=== PATIENT | male | born 1950 | race Caucasian/White ===

== ENCOUNTER 2018-05-18 01:19 | Emergency (ER) | payer BC, MEDICARE ==
--- NOTE | 2018-05-18 01:46 | ER Document Report ---
ED General - General Chief Complaint: High Blood Pressure Stated Complaint: BLOOD PRESSURE ISSUES Time Seen by Provider: 05/18/18 01:36 Notes: Patient is a 67-year-old male that comes to the emergency department for chief complaint of feeling weak, lightheaded, headache, vague chest and abdomen discomfort, and decreased urination. He states that he drove 6 hours, then worked outside for an extended period of time, did drink a lot of water, has not urinated since this afternoon. He states he just felt generally poor, checked his blood pressure and it was very high. He does not have a history of hypertension. He states he felt mild discomfort in his chest prior to arrival. He denies nausea or vomiting, passing out. Past medical history of atrial fibrillation, arrhythmia, he is on flecainide, does have a history of BPH but denies history of urinary retention or Rondon catheter. TRAVEL OUTSIDE OF THE [place] IN LAST 30 DAYS: No - Related Data Allergies/Adverse Reactions: No Known Allergies Allergy (Verified 05/18/18 01:23) Past Medical History - General Information source: Patient - Social History Smoking Status: Never Smoker Frequency of alcohol use: None Drug Abuse: None Lives with: Family Family History: Reviewed & Not Pertinent - Past Medical History Cardiac Medical History: Reports: Other - SVT Renal/ Medical History: Reports: Hx Benign Prostatic Hyperplasia - Immunizations Hx Diphtheria, Pertussis, Tetanus Vaccination: Yes Review of Systems - Review of Systems Constitutional: See HPI EENT: No symptoms reported Cardiovascular: See HPI Respiratory: No symptoms reported Gastrointestinal: See HPI Genitourinary: See HPI Male Genitourinary: No symptoms reported Musculoskeletal: No symptoms reported Skin: No symptoms reported Hematologic/Lymphatic: No symptoms reported Neurological/Psychological: No symptoms reported Physical Exam - Vital signs Vitals: Temp Pulse Resp BP Pulse Ox 98.0 F 70 20 200/100 H 99 05/18/18 01:23 05/18/18 01:23 05/18/18 01:23 05/18/18 01:23 05/18/18 01:23 - Notes Notes: GENERAL: Patient appears uncomfortable but is not in severe distress HEAD: Normocephalic, atraumatic. EYES: Pupils equal, round, and reactive to light. Extraocular movements intact. ENT: Oral mucosa moist, tongue midline. NECK: Full range of motion. Supple. Trachea midline. LUNGS: Clear to auscultation bilaterally, no wheezes, rales, or rhonchi. No respiratory distress. HEART: Regular rate and rhythm. No murmur ABDOMEN: Patient winces and cries out with palpation of the general lower abdomen. Upper abdominal exam unremarkable. EXTREMITIES: Moves all 4 extremities spontaneously. No edema, normal radial and dorsalis pedis pulses bilaterally. No cyanosis. BACK: no cervical, thoracic, lumbar midline tenderness. No saddle anesthesia, normal distal neurovascular exam. NEUROLOGICAL: Alert and oriented x3. Normal speech. [cranial nerves II through XII grossly intact]. PSYCH: Normal affect, normal mood. SKIN: Warm, dry, normal turgor. No rashes or lesions noted. Course - Re-evaluation Re-evalutation: Patient appears uncomfortable, however he is awake and alert, oriented, has a normal neurological exam. He is very hypertensive with over 200 systolic and over 100 diastolic. On examination he is very tender in the suprapubic area with abdominal distention. Because of dizziness/headache with hypertension the CAT scan of the head will be performed, cardiac workup pending. Ultrasound performed at bedside, shows very distended urinary bladder with approximately 1 L of urine in the bladder, patient states he does have a history of BPH and he was seen recently by his urologist for this. Rondon catheter was placed, 1 L of urine did evacuate, after this abdominal distention resolved, pain resolved, all symptoms resolved. Patient states he feels excellent now. Hypertension resolved. Almost 1000 mL's more came into the bag over the course of the next hour. CBC, chemistry, troponin, urinalysis generally unremarkable. There has been an error with the radiology read, I am unable to see the report of the chest x-ray , no obvious abnormalities, no pulmonary symptoms or chest symptoms at this time. CAT scan of the head with no acute findings, discussed the results and provided him with a copy of the report. Patient asking to leave, states his daughter needs to be taken home, states he has urology follow-up that he will perform. Leg bag placed, discussed urology follow-up, discussed return precautions in detail. Patient states satisfaction and agreement. - Vital Signs Vital signs: Temp Pulse Resp BP Pulse Ox 98.2 F 70 13 137/80 H 97 05/18/18 03:59 05/18/18 01:23 05/18/18 03:46 05/18/18 03:46 05/18/18 03:46 - Laboratory Result Diagrams: 05/18/18 01:42 05/18/18 01:42 Laboratory results interpreted by me: 05/18/18 05/18/18 01:42 01:42 Glucose 111 H Urine Ketones TRACE H Urine Blood SMALL H Discharge - Discharge Clinical Impression: Acute urinary retention BPH (benign prostatic hyperplasia) Qualifiers: Lower urinary tract symptom presence: symptoms present Lower urinary tract symptom detail: urinary retention Qualified Code(s): N40.1 - Benign prostatic hyperplasia with lower urinary tract symptoms Condition: Stable Disposition: HOME, SELF-CARE Additional Instructions: Your evaluation is consistent with acute urinary retention/outflow obstruction. As a result of Rondon catheter had to be placed to drain your bladder. Call your urologist tomorrow to perform close follow-up for additional evaluation and management including possible removal of the Rondon catheter. Your workup tonight does not show any new concerning abnormalities. Return if you worsen including abdominal pain, fever, vomiting, or any other concerning or worsening symptoms. Forms: Treatment of Relative/Child
[2018-05-18] MEDS ORDERED: LIDOCAINE 2% URO-JET 5 ML KIT MM ONE (01:55)
[2018-05-18 01:56] LABS: ABSOLUTE LYMPHOCYTES (AUTO) 1.3 10^3/uL (0.5-4.7); ABSOLUTE MONOCYTES (AUTO) 0.6 10^3/uL (0.1-1.4); ABSOLUTE NEUT (AUTO) 4.8 10^3/uL (1.7-8.2); BASOPHILS % (AUTO) 0.7 % (0-2); EOSINOPHILS % (AUTO) 0.6 % (0-6); HEMATOCRIT 46.2 % (37.9-51.0); HEMOGLOBIN 15.9 g/dL (13.5-17.0); LYMPHOCYTES % (AUTO) 19.4 % (13-45); MEAN CORPUSCULAR HEMOGLOBIN 32.7 pg (27.0-33.4); MEAN CORPUSCULAR HGB CONC 34.3 g/dL (32.0-36.0); MEAN CORPUSCULAR VOLUME 95 fl (80-97); MONOCYTES % (AUTO) 8.8 % (3-13); PLATELET COUNT 279 10^3/uL (150-450); RED BLOOD COUNT 4.86 10^6/uL (4.35-5.55); RED CELL DISTRIBUTION WIDTH 12.7 % (11.5-14.0); SEGMENTED NEUTROPHILS % (AUTO) 70.5 % (42-78); TOTAL CELLS COUNTED % (AUTO) 100 %; WHITE BLOOD COUNT 6.8 10^3/uL (4.0-10.5)
[2018-05-18 02:01] LABS: APPEARANCE,URINE CLEAR; BILIRUBIN,URINE NEGATIVE (NEGATIVE); COLOR,URINE STRAW; GLUCOSE, URINE NEGATIVE (NEGATIVE); KETONES,URINE TRACE mg/dL (NEGATIVE); LEUKOCYTE ESTERASE,URINE NEGATIVE (NEGATIVE); NITRITE,URINE NEGATIVE (NEGATIVE); PROTEIN,URINE NEGATIVE (NEGATIVE); URINE SPECIFIC GRAVITY 1.008; UROBILINOGEN,URINE NEGATIVE mg/dL (<2.0)
[2018-05-18 02:11] LABS: ALANINE AMINOTRANSFERASE 30 U/L (21-72); ALBUMIN 4.7 g/dL (3.5-5.0); ALKALINE PHOSPHATASE 65 U/L (38-126); ANION GAP 12 (5-19); ASPARTATE AMINO TRANSFERASE 28 U/L (17-59); BILIRUBIN,DIRECT 0.3 mg/dL (0.0-0.4); BILIRUBIN,TOTAL 1.1 mg/dL (0.2-1.3); BLOOD UREA NITROGEN 13 mg/dL (7-20); CALCIUM 10.1 mg/dL (8.4-10.2); CARBON DIOXIDE 26 mmol/L (22-30); CHLORIDE 99 mmol/L (98-107); CREATINE KINASE 91 U/L (55-170); GLUCOSE 111 mg/dL (75-110); POTASSIUM 4.4 mmol/L (3.6-5.0); SODIUM 137.1 mmol/L (137-145); TOTAL PROTEIN 7.8 g/dL (6.3-8.2)
--- NOTE | 2018-05-18 03:07 | RADIOLOGY REPORT (SQ) ---
CLINICAL DATA: 67-year-old male with lightheadedness, headache and hypertension. TECHNICAL DATA: Multiple axial CT images of the brain were performed followed by sagittal and coronal reconstructed images. The CT study is performed according to ALARA (as low as reasonably achievable) or ALARA/IMAGE GENTLY, with automatic adjustment of mA and/or kV according to patient size. Comparisons: None. FINDINGS: There is no evidence of mass, acute mass effect or midline shift. There are no acute extra-axial fluid collections. There is no evidence of acute intracranial hemorrhage. The cerebral sulci and ventricles are normal in size and configuration. There are scattered patchy areas of decreased subcortical and periventricular attenuation most consistent with mild chronic microangiopathy.. . There is no significant mucosal thickening of the paranasal sinuses. The mastoid air cells are clear. The orbital contents are grossly unremarkable. No acute osseous abnormalities are identified. No focal soft tissue abnormalities are identified. IMPRESSION: 1. There is no evidence of acute intracranial pathology. 2. Suspect mild chronic microangiopathy.
[2018-05-18 03:59] VITALS: BP 137/80
--- NOTE | 2018-05-18 08:14 | RADIOLOGY REPORT (SQ) ---
EXAM DESCRIPTION: CHEST SINGLE VIEW COMPLETED DATE/TIME: 05/18/2018 2:35 am REASON FOR STUDY: chest pain COMPARISON: None. EXAM PARAMETERS: NUMBER OF VIEWS: One view. TECHNIQUE: Single frontal radiographic view of the chest acquired. RADIATION DOSE: NA LIMITATIONS: None. FINDINGS: LUNGS AND PLEURA: No opacities, masses or pneumothorax. No pleural effusion. MEDIASTINUM AND HILAR STRUCTURES: No masses. Contour normal. HEART AND VASCULAR STRUCTURES: Heart normal in size. Normal vasculature. BONES: No acute findings. HARDWARE: None in the chest. OTHER: No other significant finding. IMPRESSION: 1. NO ACUTE RADIOGRAPHIC FINDING IN THE CHEST. TECHNICAL DOCUMENTATION: JOB ID: [id number]- All Rights Reserved Reading location - IP/workstation name: [email or web address]
--- NOTE | 2018-05-18 08:54 | EKG REPORT ---
SEVERITY:- OTHERWISE NORMAL ECG - SINUS RHYTHM BORDERLINE RIGHT AXIS DEVIATION : Confirmed by: Tyler Cliffrod 18-May-2018 08:53:09
== END 2018-05-18 04:00 | disposition home or self-care (01) ==
LOC: ER 01:19
DX: N40.1 Benign prostatic hyperplasia with lower urinary tract symptoms (principal); R33.9 Retention of urine, unspecified; R53.1 Weakness; R51 Headache; R42 Dizziness and giddiness; R07.9 Chest pain, unspecified
CPT/HCPCS: 99284; 93005; 51702; 36415; 82550; 85025; 80053; 81001; 84484; 71045; 70450; 93010; C1758; J3490

== ENCOUNTER 2018-05-18 20:03 | Emergency (ER) | payer BC, MEDICARE ==
[2018-05-18 20:26] VITALS: BP 155/77
[2018-05-18] MEDS ORDERED: LIDOCAINE 2% URO-JET 5 ML KIT MM ONE (21:03)
--- NOTE | 2018-05-18 21:27 | ER Document Report ---
ED General - General Chief Complaint: Urinary Retention Stated Complaint: CATHETER PROBLEM Time Seen by Provider: 05/18/18 21:10 Mode of Arrival: Ambulatory Information source: Patient Notes: This is a 67-year-old man with a history of an acute obstructive uropathy who presented yesterday and had a Rondon placed. He presents back tonight because of leakage around the Rondon/Rondon not working properly. He states that he was draining fine and then started to leak later today. He denies any pain. He denies any fever. Patient states he took his blood pressure multiple times throughout the day and that the blood pressure was fine. He states that his blood pressure started to elevate when the Rondon seemed to be malfunctioning. He also stated he felt a little dizzy prior to arrival. He denies any chest pain, shortness of breath or abdominal pain. TRAVEL OUTSIDE OF THE [place] IN LAST 30 DAYS: No - HPI Onset: Just prior to arrival Onset/Duration: Gradual Quality of pain: No pain Severity: None Pain Level: Denies Associated symptoms: Other - Transient dizziness. denies: Chest pain, Shortness of breath Exacerbated by: Denies Relieved by: Denies Similar symptoms previously: Yes Recently seen / treated by doctor: Yes - Related Data Allergies/Adverse Reactions: No Known Allergies Allergy (Verified 05/18/18 01:23) Past Medical History - General Information source: Patient - Social History Smoking Status: Never Smoker Cigarette use (# per day): No Chew tobacco use (# tins/day): No Frequency of alcohol use: None Drug Abuse: None Lives with: Family Family History: Reviewed & Not Pertinent Patient has suicidal ideation: No Patient has homicidal ideation: No - Past Medical History Cardiac Medical History: Reports: Hx Coronary Artery Disease, Hx Hypertension Pulmonary Medical History: Reports: None EENT Medical History: Reports: None Neurological Medical History: Reports: None Endocrine Medical History: Reports: None Renal/ Medical History: Reports: Hx Benign Prostatic Hyperplasia. Denies: Hx Peritoneal Dialysis Malignancy Medical History: Reports None GI Medical History: Reports: None Musculoskeletal Medical History: Reports None Skin Medical History: Reports None Psychiatric Medical History: Reports: None Traumatic Medical History: Reports: None Infectious Medical History: Reports: None Past Surgical History: Reports: Hx Cardiac Surgery - Ablation x4, Hx Orthopedic Surgery - knee; L shoulder - Immunizations Hx Diphtheria, Pertussis, Tetanus Vaccination: Yes Review of Systems - Review of Systems Constitutional: denies: Chills, Fever EENT: No symptoms reported Cardiovascular: See HPI. denies: Chest pain, Palpitations, Heart racing Respiratory: No symptoms reported Gastrointestinal: denies: Abdominal pain, Diarrhea, Nausea, Vomiting, Poor appetite Genitourinary: See HPI Male Genitourinary: See HPI Musculoskeletal: No symptoms reported Skin: No symptoms reported Hematologic/Lymphatic: No symptoms reported Neurological/Psychological: No symptoms reported Physical Exam - Vital signs Vitals: Temp Pulse Resp BP Pulse Ox 98.7 F 75 14 155/77 H 98 05/18/18 20:22 05/18/18 20:22 05/18/18 20:22 05/18/18 20:22 05/18/18 20:22 Notes: Physical exam: GENERAL: Patient is alert and oriented x3 and in no acute distress. HEAD: Atraumatic, normocephalic. EYES: Pupils equal round and reactive to light, extraocular movements intact, sclera anicteric, conjunctiva are normal. ENT: TMs normal, nares patent, oropharynx clear without exudates. Moist mucous membranes. NECK: Normal range of motion, supple without obvious mass or JVD. LUNGS: Breath sounds clear to auscultation bilaterally and equal. No wheezes rales or rhonchi. HEART: Regular rate and rhythm without murmurs, rubs or gallops. ABDOMEN: Soft, normoactive bowel sounds. No tenderness to palpation. No guarding, no rebound. No masses appreciated. Penis: Rondon in place. Draining urine. There is evidence of leakage around the Rondon catheter. Side ultrasound: Balloon is visible within the bladder, not distended. EXTREMITIES: Normal range of motion, no pitting or edema. No clubbing or cyanosis. NEUROLOGICAL: Cranial nerves II through XII grossly intact. Normal speech, moving all extremities. PSYCH: Normal mood, normal affect. SKIN: Warm, Dry, normal turgor, no rashes or lesions noted. Course - Re-evaluation Re-evalutation: 05/18/18 23:56 Note: Patient did appear somewhat anxious on exam. He did complain of some dizziness. I reviewed yesterday's chart where he had an so we checked electrolytes looking for any electrolyte abnormalities that may have come from a possible postobstructive diuresis. His Rondon was changed. After change of the Rondon, he seemed to be in a steven to go and stated he felt fine. I did discuss the results of the urine (it has some red blood cells as well as some white blood cells and trace bacteria) and I said we sent a urine culture. I will put him on some Keflex now as well as some Flomax. The plan is for him to follow-up with his urologist when he gets back home. - Vital Signs Vital signs: Temp Pulse Resp BP Pulse Ox 98.7 F 75 14 155/77 H 98 05/18/18 20:22 05/18/18 20:22 05/18/18 20:22 05/18/18 20:22 05/18/18 20:22 - Laboratory Result Diagrams: 05/18/18 21:29 05/18/18 21:29 Laboratory results interpreted by me: 05/18/18 05/18/18 21:29 22:57 Sodium 135.2 L BUN 21 H Glucose 115 H Urine Ketones TRACE H Urine Blood LARGE H Ur Leukocyte Esterase SMALL H Discharge - Discharge Clinical Impression: Rondon malfunction Condition: Stable Disposition: HOME, SELF-CARE Additional Instructions: As we discussed, we did send a urine culture. We will call you if anything grows out. Otherwise you can take Tylenol or ibuprofen for any penile discomfort. I would follow-up with the urologist when you are back in town. If you start developing fever or pain, I would go to the nearest emergency room for repeat evaluation. Flomax is medicine used to improve urine flow: Take as prescribed. Prescriptions: Cephalexin Monohydrate [Keflex 500 mg Capsule] 500 mg PO Q6H 5 Days capsule Tamsulosin HCl [Flomax 0.4 mg Cap.sr] 0.4 mg PO DAILY #7 cap.sr.24h
[2018-05-18 21:45] LABS: ABSOLUTE LYMPHOCYTES (AUTO) 1.1 10^3/uL (0.5-4.7); ABSOLUTE MONOCYTES (AUTO) 0.8 10^3/uL (0.1-1.4); ABSOLUTE NEUT (AUTO) 5.9 10^3/uL (1.7-8.2); BASOPHILS % (AUTO) 0.5 % (0-2); EOSINOPHILS % (AUTO) 0.2 % (0-6); LYMPHOCYTES % (AUTO) 14.3 % (13-45); MEAN CORPUSCULAR HEMOGLOBIN 33.2 pg (27.0-33.4); MEAN CORPUSCULAR HGB CONC 34.8 g/dL (32.0-36.0); MEAN CORPUSCULAR VOLUME 95 fl (80-97); MONOCYTES % (AUTO) 9.8 % (3-13); PLATELET COUNT 283 10^3/uL (150-450); RED BLOOD COUNT 4.51 10^6/uL (4.35-5.55); SEGMENTED NEUTROPHILS % (AUTO) 75.2 % (42-78); TOTAL CELLS COUNTED % (AUTO) 100 %; WHITE BLOOD COUNT 7.8 10^3/uL (4.0-10.5)
[2018-05-18 21:56] LABS: ANION GAP 9 (5-19); BLOOD UREA NITROGEN 21 mg/dL (7-20); CALCIUM 10.1 mg/dL (8.4-10.2); CARBON DIOXIDE 27 mmol/L (22-30); CHLORIDE 99 mmol/L (98-107); GLUCOSE 115 mg/dL (75-110); POTASSIUM 4.2 mmol/L (3.6-5.0); SODIUM 135.2 mmol/L (137-145)
[2018-05-18 23:16] LABS: APPEARANCE,URINE CLEAR; BILIRUBIN,URINE NEGATIVE (NEGATIVE); COLOR,URINE YELLOW; GLUCOSE, URINE NEGATIVE (NEGATIVE); KETONES,URINE TRACE mg/dL (NEGATIVE); LEUKOCYTE ESTERASE,URINE SMALL (NEGATIVE); NITRITE,URINE NEGATIVE (NEGATIVE); PROTEIN,URINE NEGATIVE (NEGATIVE); URINE SPECIFIC GRAVITY 1.012; UROBILINOGEN,URINE NEGATIVE mg/dL (<2.0)
[2018-05-18] MEDS ORDERED: CEPHALEXIN 500 MG CAPSULE PO ONE (23:52)
== END 2018-05-19 00:15 | disposition home or self-care (01) ==
LOC: ER 20:03
DX: T83.038A Leakage of other urinary catheter, initial encounter (principal); Y84.6 Urinary catheterization as the cause of abnormal reaction of the patient, or of later complication, without mention of misadventure at the time of the procedure
CPT/HCPCS: 99283; 36415; 87086; 85025; 80048; 81001; J3490